=== PATIENT | female | born 1995 | race Caucasian/White ===

== ENCOUNTER 2017-03-20 12:43 | Emergency (ER) | payer BC ==
[~2017-03-20] VITALS: Ht 167.6 cm; Wt 57.2 kg
[~2017-03-20 12:43] MED LIST: DESO1TAB33 PO
[2017-03-20 12:45] VITALS: BP_SYST 124
--- NOTE | 2017-03-20 12:45 | NUR ---
Patient triaged and placed in waiting room. VSS and patient appears in no acute distress at this time. Accompanied by MOTHER, awaiting available bed, and MD notified of need for MSE.
--- NOTE | 2017-03-20 15:05 | NUR ---
pt c/o abdominal pain since this morning, found bright red blood in the toilet.went to urgent care,sent here for further evaluation. abdomen soft,non-tender,no active bleeding.
--- NOTE | 2017-03-20 15:05 | NUR ---
Pt placed to ER bed 03, to konstantin, report given to UZAIR Gaytan.
--- NOTE | 2017-03-20 15:31 | NUR ---
ER at bedside examining patient.
[2017-03-20 16:16] LABS: BASOPHILS # (AUTO) 0.1 K/uL (0.0-0.2); BASOPHILS % (AUTO) 1.1 % (0.0-2.0); EOSINOPHILS # (AUTO) 0.1 K/uL (0.0-0.4); EOSINOPHILS % (AUTO) 0.9 % (0.0-4.0); HEMATOCRIT 38.3 % (36-48); HEMOGLOBIN 12.8 g/dL (12.0-16.0); LYMPHOCYTES # (AUTO) 2.3 K/uL (1.0-5.5); LYMPHOCYTES % (AUTO) 37.4 % (20.5-51.5); MEAN CORPUSCULAR HEMOGLOBIN 30 pg (27-31); MEAN CORPUSCULAR HGB CONC 33 % (32-36); MEAN CORPUSCULAR VOLUME 91 fL (79.0-98.0); MONOCYTES # (AUTO) 0.4 K/uL (0.0-1.0); MONOCYTES % (AUTO) 6.2 % (1.7-9.3); NEUTROPHILS # (AUTO) 3.4 K/uL (1.8-7.7); NEUTROPHILS % (AUTO) 54.4 % (40.0-70.0); PLATELET COUNT (AUTO) 252 K/uL (130-430); RED BLOOD CELL COUNT(AUTO) 4.22 MIL/uL (4.2-6.2); RED CELL DISTRIBUTION WIDTH 13.3 % (9.0-15.0); WHITE BLOOD COUNT (AUTO) 6.3 K/uL (4.5-11.0)
[2017-03-20 16:29] LABS: CALCIUM 8.9 mg/dL (8.4-11.0); CREATININE 0.7 mg/dL (0.55-1.30); POTASSIUM 3.9 mmol/L (3.5-5.1); PROTHROMBIN TIME 10.5 SECS (9.5-12.5)
[2017-03-20 16:33] LABS: ALBUMIN 3.6 g/dL (3.4-4.8); TOTAL BILIRUBIN 0.4 mg/dL (0.0-1.0); TOTAL PROTEIN, SERUM 7.8 g/dL (6.4-8.3)
--- NOTE | 2017-03-20 16:39 | NUR ---
transport to ct scan
[2017-03-20 16:52] LABS: BILIRUBIN,URINE NEGATIVE (NEGATIVE); BLOOD, URINE NEGATIVE (NEGATIVE); CLARITY/URINE CLEAR (CLEAR); COLOR,URINE YELLOW (YELLOW); GLUCOSE,URINE NEGATIVE (NEGATIVE); KETONES,URINE NEGATIVE (NEGATIVE); LEUKOCYTE ESTERASE ,URINE TRACE (NEGATIVE); NITRITE, URINE NEGATIVE (NEGATIVE); PH,URINE 6.5 (5.0-8.0); PROTEIN URINE NEGATIVE (NEGATIVE); UROBILINOGEN,URINE 0.2 (0.2-1.0)
[2017-03-20 16:55] LABS: BACTERIA,URINE FEW /HPF (None Seen); RBC,URINE 0-3 /HPF (0-3)
[2017-03-20 16:56] LABS: MUCUS,URINE 2+ /LPF (None Seen)
--- NOTE | 2017-03-20 16:59 | NUR ---
return back from ct scan
--- NOTE | 2017-03-20 18:13 | NUR ---
Patient given written and verbal discharge instructions and verbalizes understanding. ER MD discussed with patient the results and treatment provided. Patient in stable condition. ID arm band removed. Rx of 0 given. Patient educated on pain management and to follow up with PMD. Pain Scale 0/10 . Opportunity for questions provided and answered.
== END 2017-03-20 18:13 | disposition home or self-care (01) ==
LOC: SED 12:43 → MERGE 12:43 → SED 18:13
DX: K59.00 Constipation, unspecified (principal); R11.0 Nausea; Z88.6 Allergy status to analgesic agent
CPT/HCPCS: 36415; 80053; 81000-TC; 81025; 83605; 83690-TC; 85025; 85610-TC; 87040-TC; 87086; 99285